=== PATIENT | female | born 1935 | race Caucasian/White ===

== ENCOUNTER 2021-12-29 18:00 | Observation (INO) | payer MEDICARE ==
[2021-12-29] MEDS ORDERED: ASPIRIN 81 MG PO STA (18:36)
--- NOTE | 2021-12-29 18:43 | ED ---
General Adult HPI - General Chief complaint: Chest Pain Stated complaint: chest pain Time Seen by Provider: 12/29/21 18:22 Source: patient, EMS Mode of arrival: EMS Limitations: no limitations - History of Present Illness Initial comments: Dictation was produced using [employer] dictation software. please excuse any grammatical, word or spelling errors. Chief Complaint: 86-year-old female presents to the emergency department for 30 minute episode of chest pain History of Present Illness: patient is an 86-year-old female she presents emergency department for an episode of chest pain. These last for 30 minutes. It was substernal radiating across her chest. She was so seen with diaphoresis. States pain was severe. She states that her symptoms resolved on its on. Patient denies any history of cardiac disease. She is asymptomatic at the bedside. The ROS documented in this emergency department record has been reviewed and confirmed by me. Those systems with pertinent positive or negative responses have been documented in the HPI. All other systems are other negative and/or noncontributory. PHYSICAL EXAM: General Impression: Alert and oriented x3, not in acute distress HEENT: Normocephalic atraumatic, extra-ocular movements intact, pupils equal and reactive to light bilaterally, mucous membranes moist. Cardiovascular: Heart regular rate and rhythm Chest: Able to complete full sentences, no retractions, no tachypnea Abdomen: abdomen soft, non-tender, non-distended, no organomegaly Musculoskeletal: Pulses present and equal in all extremities, no peripheral edema Motor: no focal deficits noted Neurological: CN II-XII grossly intact, no focal motor or sensory deficits noted Skin: Intact with no visualized rashes Psych: Normal affect and mood ED course: 86-year-old well-appearing female presents emergency department for episode of chest pain concerning for acute coronary syndrome. Vital signs upon arrival are within acceptable limits. EKG is normal sinus rhythm without any signs of ischemia or infarction Laboratory evaluation obtained. CBC metabolic panel is unremarkable. Troponin is negative. Patient reevaluated at bedside at 8:00 PM found to be in stable medical condition. Still continues to be asymptomatic. Given patient's age and risk factors we will have patient admitted for cardiac observation for such troponins and cardiac consultation. EKG interpretation: Ventricular rate 54, sinus bradycardia, when necessary 170, Q 73, QTC 395. No MO prolongation, no QTC prolongation, no ST or T-wave changes noted. Overall, this EKG is unremarkable - Related Data Home Medications Medication Instructions Recorded Confirmed Aspirin EC [Ecotrin Low Dose] 81 mg PO HS 12/29/21 12/29/21 Atorvastatin [Lipitor] 10 mg PO HS 12/29/21 12/29/21 Lisinopril [Prinivil] 10 mg PO HS 12/29/21 12/29/21 Allergies Allergy/AdvReac Type Severity Reaction Status Date / Time codeine Allergy Chest Pain Verified 12/29/21 19:00 Review of Systems ROS Statement: Those systems with pertinent positive or pertinent negative responses have been documented in the HPI. ROS Other: All systems not noted in ROS Statement are negative. Past Medical History Past Medical History: Hyperlipidemia, Hypertension History of Any Multi-Drug Resistant Organisms: None Reported Past Surgical History: Appendectomy, Cholecystectomy, Hysterectomy Past Psychological History: No Psychological Hx Reported Smoking Status: Never smoker Past Alcohol Use History: None Reported Past Drug Use History: None Reported General Exam Limitations: no limitations Course Vital Signs 12/29/21 18:14 Temperature 97.7 F Pulse Rate 56 L Respiratory 18 Rate Blood Pressure 137/79 O2 Sat by Pulse 98 Oximetry Medical Decision Making - Lab Data Result diagrams: 12/29/21 18:43 12/29/21 18:43 Lab Results 12/29/21 12/29/21 12/29/21 Range/Units 18:43 18:43 18:43 WBC 8.3 (3.8-10.6) k/uL RBC 4.46 (3.80-5.40) m/uL Hgb 13.9 (11.4-16.0) gm/dL Hct 42.2 (34.0-46.0) % MCV 94.5 (80.0-100.0) fL MCH 31.1 (25.0-35.0) pg MCHC 32.9 (31.0-37.0) g/dL RDW 13.0 (11.5-15.5) % Plt Count 255 (150-450) k/uL MPV 8.0 Neutrophils % 50 % Lymphocytes % 39 % Monocytes % 7 % Eosinophils % 1 % Basophils % 1 % Neutrophils # 4.2 (1.3-7.7) k/uL Lymphocytes # 3.2 (1.0-4.8) k/uL Monocytes # 0.6 (0-1.0) k/uL Eosinophils # 0.1 (0-0.7) k/uL Basophils # 0.1 (0-0.2) k/uL Sodium 139 (137-145) mmol/L Potassium 4.5 (3.5-5.1) mmol/L Chloride 106 (98-107) mmol/L Carbon Dioxide 23 (22-30) mmol/L Anion Gap 10 mmol/L BUN 25 H (7-17) mg/dL Creatinine 0.91 (0.52-1.04) mg/dL Est GFR (CKD-EPI)AfAm 66 (>60 ml/min/1.73 sqM) Est GFR (CKD-EPI)NonAf 57 (>60 ml/min/1.73 sqM) Glucose 91 (74-99) mg/dL Calcium 8.8 (8.4-10.2) mg/dL Magnesium 2.0 (1.6-2.3) mg/dL Troponin I <0.012 (0.000-0.034) ng/mL Disposition Clinical Impression: Chest pain Disposition: ADMITTED IP TO THIS HOSP Condition: Fair Referrals: Juan Stuart MD [Primary Care Provider] - 1-2 days
[2021-12-29 18:54] LABS: Basophils # (A) 0.1 k/uL (0-0.2); Basophils % (A) 1 %; Eosinophils # (A) 0.1 k/uL (0-0.7); Eosinophils % (A) 1 %; HCT 42.2 % (34.0-46.0); HGB 13.9 gm/dL (11.4-16.0); Lymphocytes # (A) 3.2 k/uL (1.0-4.8); Lymphocytes % (A) 39 %; MCH 31.1 pg (25.0-35.0); MCHC 32.9 g/dL (31.0-37.0); MCV 94.5 fL (80.0-100.0); Monocytes # (A) 0.6 k/uL (0-1.0); Monocytes % (A) 7 %; Neutrophils # (A) 4.2 k/uL (1.3-7.7); Neutrophils % (A) 50 %; Platelet Count 255 k/uL (150-450); RBC 4.46 m/uL (3.80-5.40); WBC 8.3 k/uL (3.8-10.6)
[2021-12-29 19:04] LABS: Calcium 8.8 mg/dL (8.4-10.2); Potassium 4.5 mmol/L (3.5-5.1)
--- NOTE | 2021-12-29 19:19 | XR ---
EXAMINATION TYPE: XR chest 1V portable DATE OF EXAM: 12/29/2021 COMPARISON: NONE HISTORY: Chest pain TECHNIQUE: Single view FINDINGS: Heart is normal. Lungs are clear of infiltrate. There is no heart failure. There are no hil ar masses. There are chest leads. IMPRESSION: No active cardiopulmonary disease.
[2021-12-29] MEDS ORDERED: NITROGLYCERIN SL TABS 0.4 MG TAB SUBLINGUAL PRN (19:53)
--- NOTE | 2021-12-30 01:48 | P.HPIM ---
History of Present Illness H&P Date: 12/29/21 Patient is an 86-year-old female with a PMH of hypertension and hyperlipidemia who presents to the emergency room with complaints of chest discomfort. The patient reports that her pain started suddenly this afternoon [place]. She reported that it was substernal, 10 out of 10, pressure-like, across her entire abdomen, with associated diaphoresis and lightheadedness. She denied expressing shortness of breath, nausea, or vomiting. She reported the pain lasted roughly 45 minutes and then resolved in route to the hospital. She reports being back at her baseline at the time of interview. Reports no prior history of such pain. Reports the pain was nonpleuritic. Denied cough, fever, chills, abdominal pain, diarrhea. EKG emergency room revealed sinus bradycardia at 54 bpm with poor R- wave progression. Chest x-ray was unremarkable. Laboratory evaluation revealed a troponin of less than 0.012. Review of systems: Pertinent positives and negatives as discussed in HPI, a complete review of systems was performed and all other systems are negative. Physical examination: General: non toxic, no distress, appears at stated age, overweight Derm: no unusual rashes/lesions no unusual ecchymoses, warm, dry Head: atraumatic, normocephalic, symmetric Eyes: EOMI, no lid lag, anicteric sclera, pupils equal round reactive to light ENT: Nose and ears atraumatic, no thrush, no pharyngeal erythema Neck: No thyromegaly, no cervical lymphadenopathy, trachea midline, supple Mouth: no lip lesion, mucus membranes moist Cardiovascular: S1S2 reg, no murmur, positive posterior tibial pulse bilateral, no edema, capillary refill less than 2 seconds Lungs: CTA bilateral, no rhonchi, no rales , no accessory muscle use Abdominal: soft, nontender to palpation, no guarding, no appreciable organomegaly, normal bowel sounds Ext: no gross muscle atrophy, muscle strength 5 out of 5 in all 4 extremities grossly, no contractures, Neuro: CN II-XI grossly intact, light touch intact all 4 extremities, finger to nose within normal limits, Psych: Alert, oriented, appropriate affect Assessment/plan Chest pain, rule out ACS -Cardiac monitoring -Cardiology consult -Trend troponin -Continue with aspirin Chronic conditions: Hypertension, HLD -Continue with home meds DVT prophylaxis -Heparin subcu The patient is admitted with an anticipated less than 2 midnight stay for evaluation of chest pain CODE STATUS: Full Code Discussed with: Patient Anticipated discharge date: in am Anticipated discharge place: Home Past Medical History Past Medical History: Hyperlipidemia, Hypertension History of Any Multi-Drug Resistant Organisms: None Reported Past Surgical History: Appendectomy, Cholecystectomy, Hysterectomy Past Psychological History: No Psychological Hx Reported Smoking Status: Never smoker Past Alcohol Use History: None Reported Past Drug Use History: None Reported Medications and Allergies Home Medications Medication Instructions Recorded Confirmed Type Aspirin EC [Ecotrin Low Dose] 81 mg PO HS 12/29/21 12/29/21 History Atorvastatin [Lipitor] 10 mg PO HS 12/29/21 12/29/21 History Lisinopril [Prinivil] 10 mg PO HS 12/29/21 12/29/21 History Allergies Allergy/AdvReac Type Severity Reaction Status Date / Time codeine Allergy Chest Pain Verified 12/29/21 19:00 Physical Exam Vitals: Vital Signs Temp Pulse Pulse Resp BP BP Pulse Ox 12/29/21 20:34 97.8 F 71 20 175/83 98 12/29/21 20:07 63 16 160/80 97 12/29/21 19:00 62 16 122/75 96 12/29/21 18:14 97.7 F 56 L 18 137/79 98 Intake and Output 12/29/21 12/29/21 12/30/21 14:59 22:59 06:59 Other: Weight 68.039 kg Results CBC & Chem 7: 12/29/21 18:43 12/29/21 18:43 Labs: Abnormal Lab Results - Last 24 Hours (Table) 12/29/21 Range/Units 18:43 BUN 25 H (7-17) mg/dL Thrombosis Risk Factor Assmnt - Choose All That Apply Each Factor Represents 1 point: Obesity (BMI >25) Each Risk Factor Represents 3 Points: Age 75 years or older Thrombosis Risk Factor Assessment Total Risk Factor Score: 4 Thrombosis Risk Factor Assessment Level: Moderate Risk
[2021-12-30 03:23] VITALS: RESP 18
[2021-12-30] MEDS ORDERED: HEPARIN SODIUM,PORCINE/PF 5,000 UNIT/0.5 ML SYRINGE SQ SCH (08:00)
[2021-12-30] MEDS ORDERED: ASPIRIN 325 MG TAB PO SCH (09:00)
[2021-12-30] MEDS ORDERED: CAFFEINE CITRATE 60 MG/3 ML VIAL IV PRN (09:05)
[2021-12-30] MEDS ORDERED: REGADENOSON 0.4 MG/5 ML SYRINGE IV PRN (09:05)
[2021-12-30] MEDS ORDERED: AMINOPHYLLINE 500 MG/20 ML VIAL IV PRN (09:05)
[2021-12-30 09:10] LABS: Chol/HDL Ratio 2.64 Ratio; LDL Cholesterol,Calculated 52.5 mg/dL (0.0-131.0); VLDL Calculation 17.08 mg/dL (5.00-40.00)
--- NOTE | 2021-12-30 10:13 | P.CRDCN ---
History of Present Illness History of present illness: This is Dr. Caldwell dictating a consult on patient [place] The patient was interviewed and examined IMPRESSION / ASSESSMENT: Chest discomfort for 30 minutes associated with diaphoresis and dizziness No bradycardia arrhythmias noted No evidence for acute myocardial infarction Normal blood pressure History of hypertension dyslipidemia. In 2019 his stress test was normal with preserved systolic function PLAN: Discussed with Dr. Grove We will proceed with Lexiscan Cardiolite stress test. Further recommendations to follow Continue cardiac medications HPI Patient presented with chest discomfort starting 30 minutes, substernal diaphoretic severe pain Spontaneous resolution Past history of hypertension dyslipidemia Blood pressure 137/79 mmHg on admission Pulse rate in the 50s ROS: No fever chills or rigors, no cough, phlegm or expectoration, no nausea, vomiting or diarrhea, no hematuria, dysuria, no musculoskeletal complaints, no strokes or seizures, no skin lesions. EXAMINATION: Normal heart sounds Normal breath sounds No JVD Abdomen soft Extremities warm no edema Normal blood pressure REVIEW OF LABS, ECG & MEDICAL DATA Normal cardiac enzymes 3 Normal electrolytes Normal CBC Twelve-lead EKG shows sinus rhythm normal MD narrow QRS normal ST segments Past Medical History Past Medical History: Hyperlipidemia, Hypertension History of Any Multi-Drug Resistant Organisms: None Reported Past Surgical History: Appendectomy, Cholecystectomy, Hysterectomy Past Psychological History: No Psychological Hx Reported Smoking Status: Never smoker Past Alcohol Use History: None Reported Past Drug Use History: None Reported Medications and Allergies Home Medications Medication Instructions Recorded Confirmed Type Aspirin EC [Ecotrin Low Dose] 81 mg PO HS 12/29/21 12/29/21 History Atorvastatin [Lipitor] 10 mg PO HS 12/29/21 12/29/21 History Lisinopril [Prinivil] 10 mg PO HS 12/29/21 12/29/21 History Allergies Allergy/AdvReac Type Severity Reaction Status Date / Time codeine Allergy Chest Pain Verified 12/29/21 19:00 Physical Exam Vitals: Vital Signs Temp Pulse Pulse Resp BP BP Pulse Ox 12/30/21 07:00 97 F L 68 18 161/75 95 12/30/21 00:47 98.0 F 60 18 147/80 95 12/29/21 20:34 97.8 F 71 20 175/83 98 12/29/21 20:07 63 16 160/80 97 12/29/21 19:00 62 16 122/75 96 12/29/21 18:14 97.7 F 56 L 18 137/79 98 Intake and Output 12/29/21 12/30/21 12/30/21 22:59 06:59 14:59 Other: # Voids 1 1 Weight 68.039 kg Results 12/29/21 18:43 12/29/21 18:43 Cardiac Enzymes 12/29/21 12/29/21 12/30/21 Range/Units 18:43 21:58 00:39 Troponin I <0.012 <0.012 <0.012 (0.000-0.034) ng/mL CBC 12/29/21 Range/Units 18:43 WBC 8.3 (3.8-10.6) k/uL RBC 4.46 (3.80-5.40) m/uL Hgb 13.9 (11.4-16.0) gm/dL Hct 42.2 (34.0-46.0) % Plt Count 255 (150-450) k/uL Comprehensive Metabolic Panel 12/29/21 Range/Units 18:43 Sodium 139 (137-145) mmol/L Potassium 4.5 (3.5-5.1) mmol/L Chloride 106 (98-107) mmol/L Carbon Dioxide 23 (22-30) mmol/L BUN 25 H (7-17) mg/dL Creatinine 0.91 (0.52-1.04) mg/dL Glucose 91 (74-99) mg/dL Calcium 8.8 (8.4-10.2) mg/dL Current Medications Generic Name Dose Route Start Last Admin Trade Name Freq PRN Reason Stop Dose Admin Aspirin 325 mg 12/30/21 09:00 Aspirin 325 Mg Tab PO DAILY AKIN Atorvastatin Calcium 10 mg 12/30/21 21:00 Atorvastatin 10 Mg Tab PO HS AKIN Heparin Sodium (Porcine) 5,000 unit 12/30/21 08:00 Heparin Sodium,Porcine/Pf 5,000 Unit/0.5 Ml Syringe SQ Q8HR AKIN Lisinopril 10 mg 12/30/21 21:00 Lisinopril 10 Mg Tab PO HS AKIN Nitroglycerin 0.4 mg 12/29/21 19:53 Nitroglycerin Sl Tabs 0.4 Mg Tab SUBLINGUAL Q5M PRN Chest Pain Intake and Output 12/29/21 12/30/21 12/30/21 22:59 06:59 14:59 Other: # Voids 1 1 Weight 68.039 kg 12/29/21 18:43 12/29/21 18:43
--- NOTE | 2021-12-30 12:24 | NM ---
EXAMINATION TYPE: NM stress lexiscan cardiolite DATE OF EXAM: 12/30/2021 COMPARISON: NONE HISTORY: History of hypertension with chest pain. TECHNIQUE: After the intravenous administration of 9.2 mCi Tc 99m Sestamibi - Cardiolite resting SPE CT images acquired 60 minutes post injection. The patient received 0.4mg Lexiscan, 25 mCi Tc 99m Sestamibi - Stress images obtained 30 minutes post injection FINDINGS: Review of stress and rest SPECT images demonstrates no distinct perfusion abnormality. Gated analysi s shows normal wall motion with an estimated left ventricular ejection fraction of 65 %. IMPRESSION: No scintigraphic evidence for reversible ischemia.
--- NOTE | 2021-12-30 12:55 | P.DS ---
Providers Date of admission: 12/29/21 19:53 Expected date of discharge: 12/30/21 Attending physician: Mahin Ott MD Consults: 12/29/21 19:53 Consult Physician Urgent Consulting Provider: Ana M Grove Consult Reason/Comments: chest pain Do you want consulting provider notified?: Yes Primary care physician: Juan L [facility] Course: Discharge Diagnosis: Chest pain, acute coronary event ruled out. Hypertension Hyperlipidemia Hospital Course: Patient is a very pleasant 86-year-old female with a past medical history of hypertension and hyperlipidemia. She presented to the emergency department with a chief complaint of chest pain. Patient reports she was sitting in the car with her as they were driving alongside [employer] and she was feeling fine. She states she even ordered some Portuguese food and she and her were on their way to get it. Patient states suddenly out of no where she began feeling a pressure-like pain in her substernal chest followed by generalized upset in her stomach, nausea, diaphoresis, and lightheadedness. Patient denies experiencing dizziness, lightheadedness, palpitations, shortness of breath, vomiting, or experiencing any numbness/tingling/weakness in her extremities. Patient reports the initial pain was intense but gradually subsided lasting approximately 45 minutes resolving prior to arrival to the hospital. In the emergency department patient underwent full evaluation. An EKG was completed showing sinus bradycardia at 54 bpm with no noted abnormalities. Chest x-ray negative for acute cardiopulmonary process. Labs unremarkable. Troponin negative at less than 0.012. Patient was admitted under our services with consultation to cardiology. Her troponins were trended overnight all resulting less than 0.012. Patient will receive continuous telemetry monitoring and close monitoring of vital signs which remained stable. Patient underwent a Lexiscan stress echocardiogram which revealed a normal EF of 65% with no scintigraphic evidence for reversible ischemia. Cardiology recommending patient follow-up outpatient. Patient updated on these results. She continued to remain free from any chest pain or complaints since hospitalization. Vital signs were unremarkable with blood pressure 129/75, heart rate 70, respiratory rate 18, temperature 90.8F, and pulse ox 95% on room air. Patient is medically stable for discharge home at this time. No medication changes have been made. Patient to follow up outpatient with PCP and cardiology as recommended. Physical examination: Vital signs reviewed and stable. General: Nontoxic, no distress and appears stated age. Derm: Skin warm and dry, normal coloration for ethnicity. Head: Atraumatic, normocephalic and symmetric. Eyes: EOMs intact, no lid lag, and anicteric sclera Mouth: no lip lesions, mucus membranes moist Cardiovascular: regular rate and rhythm with normal S1S2, systolic murmur, positive posterior tibial pulses bilaterally, and cap refill < 2 seconds. Lungs: Respirations even, regular, and unlabored on room air. Lungs CTA bilaterally, no rhonchi, no rales, no wheezing, and no accessory muscle usage. Abdominal: soft, nontender to palpation, no guarding, no appreciable organome king Ext: ROM intact. No gross muscle atrophy, no edema, no contractures Neuro: Speech clear, face symmetrical and CN II-XII grossly intact with no noted focal neuro deficits Psych: Alert and oriented to person, place, time, and situation. Appropriate and pleasant affect. A total of 39 minutes of time were spent preparing this complex discharge summary. Immanuel Lara NP rendered care for this patient independently, reviewed the findings and plan as documented in the note above. I did not physically speak with or examine the patient on this date. Patient Condition at Discharge: Stable Plan - Discharge Summary New Discharge Prescriptions: Continue Atorvastatin [Lipitor] 10 mg PO HS Aspirin EC [Ecotrin Low Dose] 81 mg PO HS Lisinopril [Prinivil] 10 mg PO HS Discharge Medication List Aspirin EC [Ecotrin Low Dose] 81 mg PO HS 12/29/21 [History] Atorvastatin [Lipitor] 10 mg PO HS 12/29/21 [History] Lisinopril [Prinivil] 10 mg PO HS 12/29/21 [History] Follow up Appointment(s)/Referral(s): Irineo Caldwell MD [STAFF PHYSICIAN] - 1 Week (f/u with Dr Samano 01/13/2022 at 3:15pm) Juan Stuart MD [Primary Care Provider] - 1-2 days Activity/Diet/Wound Care/Special Instructions: Activity: As tolerated. Take breaks as needed. Diet: Heart healthy and carb consistent diet. Avoid salts, or foods with hidden salts such as canned or boxed foods and frozen dinners. Extra salt makes your heart work harder and traps the fluid in your body for longer. Special Instructions: Take all of your medications as directed and remember to keep all of your doctor's appointments and follow-up as needed. Thank you for allowing us to participate in your care, it was truly a pleasure having you for our patient!!! Discharge Disposition: HOME SELF-CARE
[2021-12-30 15:21] VITALS: PULSE 70; TEMP 98
[2021-12-30 15:30] VITALS: BP 130/74
--- NOTE | 2021-12-30 17:57 | P.STRESS ---
- Stress Test Note Stress Test Results/Findings: Exam Performed: NM stress lexiscan cardiolite Exam Date: 12/30/21 Reason for Exam: CP Height: 5 ft Weight: 68.04 kg Protocol: LEXISCAN CARDIOLITE Stage: NA Duration of Exercise: NA Resting Heart Rate: 63 Resting Blood Pressure: 165/92 Maximum Achieved Heart Rate: 92 Maximum Achieved Blood Pressure: 165/92 85% PMHR: 113 100% PMHR: 133 METS: NA Technologist Comment: Stress Test Results/Findings: Baseline heart rate 63 beats a minute, based and blood pressure 165/92 mmHg a stent twelve-lead EKG shows sinus rhythm normal [place] narrow QRS normal ST segments Patient received Lexiscan infusion per protocol no significant change in heart rate and blood pressure Occasional PVC No evidence for ischemia Nuclear portion will be reported separately
[2021-12-30] MEDS ORDERED: lisinopriL 10 MG TAB PO SCH (21:00)
[2021-12-30] MEDS ORDERED: ATORVASTATIN 10 MG TAB PO SCH (21:00)
--- NOTE | 2022-01-05 09:56 | EST ---
Stress Test Results/Findings: Exam Performed: NM stress lexiscan cardiolite Exam Date: 12/30/21 Reason for Exam: CP Height: 5 ft Weight: 68.04 kg Protocol: LEXISCAN CARDIOLITE Stage: NA Duration of Exercise: NA Resting Heart Rate: 63 Resting Blood Pressure: 165/92 Maximum Achieved Heart Rate: 92 Maximum Achieved Blood Pressure: 165/92 85% PMHR: 113 100% PMHR: 133 METS: NA Technologist Comment: Stress Test Results/Findings: Baseline heart rate 63 beats a minute, based and blood pressure 165/92 mmHg a stent twelve-lead EKG shows sinus rhythm normal [place] narrow QRS normal ST segments Patient received Lexiscan infusion per protocol no significant change in heart rate and blood pressure Occasional PVC No evidence for ischemia Nuclear portion will be reported separately MTDD
== END 2021-12-30 17:30 | disposition home or self-care (01) ==
LOC: EC 18:00 → 6NMEDSUR 19:53
PROVIDERS: ADMIT Internal Medicine; ATTEND Internal Medicine
DX: R07.89 Other chest pain (principal); R07.2 Precordial pain; R61 Generalized hyperhidrosis; R42 Dizziness and giddiness; R00.1 Bradycardia, unspecified; R10.9 Unspecified abdominal pain; I10 Essential (primary) hypertension; E78.5 Hyperlipidemia, unspecified; E66.9 Obesity, unspecified; Z68.29 Body mass index [BMI] 29.0-29.9, adult; Z79.899 Other long term (current) drug therapy; Z79.82 Long term (current) use of aspirin; Z88.5 Allergy status to narcotic agent; Z90.49 Acquired absence of other specified parts of digestive tract; Z90.710 Acquired absence of both cervix and uterus
CPT/HCPCS: 96372; 99285; 36415; 93005; 93017; 80061; 80048; 83735; 84484 ×2; 85025; 71045; 78452; G0378 ×2; A9500; J2785; J1644